=== PATIENT | female | born 1995 | race Caucasian/White ===

== ENCOUNTER 2018-04-25 12:40 | Inpatient (IN) | payer OTHER ==
[2018-06-21] MEDS ORDERED: DINOPROSTONE 10 MG VAGINAL INSERT.SR ONE (21:53)
[2018-06-21] MEDS ORDERED: MISOPROSTOL 0.2 MG TABLET ONE (21:53)
[2018-06-21] MEDS ORDERED: LIDOCAINE 1% INJ-PF (10 MG/ML) 30 ML SDV ONE (21:53)
[2018-06-21] MEDS ORDERED: OXYTOCIN/NORMAL SALINE 20 UNIT/1,000 ML RTUINJ ONE (21:53)
[2018-06-21 22:22] LABS: ABSOLUTE BASOPHILS # (AUTO) 0.1 10^3/uL (0.0-0.2); ABSOLUTE EOSINOPHILS # (AUTO) 0.1 10^3/uL (0.0-0.6); ABSOLUTE LYMPHOCYTES (AUTO) 2.6 10^3/uL (0.5-4.7); ABSOLUTE MONOCYTES (AUTO) 1.1 10^3/uL (0.1-1.4); ABSOLUTE NEUT (AUTO) 10.2 10^3/uL (1.7-8.2); BASOPHILS % (AUTO) 0.4 % (0-2); EOSINOPHILS % (AUTO) 0.7 % (0-6); HEMATOCRIT 30.7 % (36.0-47.0); HEMOGLOBIN 10.4 g/dL (12.0-15.5); LYMPHOCYTES % (AUTO) 18.8 % (13-45); MEAN CORPUSCULAR HEMOGLOBIN 27.2 pg (27.0-33.4); MEAN CORPUSCULAR VOLUME 80 fl (80-97); MONOCYTES % (AUTO) 7.5 % (3-13); PLATELET COUNT 261 10^3/uL (150-450); RED BLOOD COUNT 3.84 10^6/uL (3.72-5.28); RED CELL DISTRIBUTION WIDTH 15.4 % (11.5-14.0); SEGMENTED NEUTROPHILS % (AUTO) 72.6 % (42-78); TOTAL CELLS COUNTED % (AUTO) 100 %; WHITE BLOOD COUNT 14.1 10^3/uL (4.0-10.5)
[2018-06-21 22:25] LABS: APPEARANCE,URINE SLIGHTLY-CLOUDY; BILIRUBIN,URINE NEGATIVE (NEGATIVE); COLOR,URINE YELLOW; GLUCOSE, URINE NEGATIVE (NEGATIVE); KETONES,URINE NEGATIVE (NEGATIVE); LEUKOCYTE ESTERASE,URINE NEGATIVE (NEGATIVE); NITRITE,URINE NEGATIVE (NEGATIVE); PROTEIN,URINE NEGATIVE (NEGATIVE); URINE SPECIFIC GRAVITY 1.024
[2018-06-21] MEDS: RINGERS SOLUTION,LACTATED 1,000 ML IV PRN (22:39)
[2018-06-21] MEDS ORDERED: OXYTOCIN/NORMAL SALINE 20 UNIT/1,000 ML RTUINJ IV PRN (22:41)
[2018-06-21] MEDS ORDERED: DINOPROSTONE 10 MG VAGINAL INSERT.SR PV PRN (22:41)
[2018-06-21] MEDS ORDERED: RINGERS SOLUTION,LACTATED 300 ML IV ONE (22:41)
[2018-06-21 22:43] LABS: URINE AMPHETAMINES SCREEN NEGATIVE; URINE BARBITURATES SCREEN NEGATIVE; URINE BENZODIAZEPINES SCREEN NEGATIVE; URINE COCAINE SCREEN NEGATIVE; URINE MARIJUANA (THC) SCREEN NEGATIVE; URINE METHADONE SCREEN NEGATIVE; URINE PHENCYCLIDINE SCREEN NEGATIVE
--- NOTE | 2018-06-21 22:55 | Admission Physical ---
Datetime Report Generated by CPN: 06/21/2018 22:54 CURRENT ADMISSION Chief Complaint: Scheduled Induction of Labor Indication for Induction: Post Dates Admit Impression : Term, Intrauterine Admit Plan: Initiate Labor Induction Protocol ALLERGIES Medication Allergies: No Medication Allergies: No Known Allergies (06/21/2018) Latex: No Latex Allergies OBSTETRICAL HISTORY EDC: 06/15/2018 00:00 : 1 Para: 0 Term: 0 : 0 SAB: 0 IAB: 0 Ectopic: 0 Livin Cesareans: 0 VBACs: 0 Multiple Births: 0 Gestational Diabetes: No Rh Sensitization: No Incompetent Cervix: No ALIVIA: No Infertility: No ART Treatment: No Uterine Anomaly: No IUGR: No Hx Previous C/S: No Macrosomia: No Hx Loss/Stillborn: No PIH: No Hx : No Placenta Previa/Abruption: No Depression/PP Depression: No PTL/PROM: No Post Hemorrhage: No Obstetrical History Comments: G1: current SEE RECORDS Alcohol: No Marijuana : No Cocaine: No Other Illicit Drugs: No Cigarettes: Never Smoker. [id number] MEDICAL HISTORY Diabetes: No Blood Transfusion: No Pulmonary Disease (Asthma, TB): No Breast Disease: No Hypertension: No Ham Passer Surgery: No Heart Disease: No Hosp/Surgery: No Autoimmune Disorder: No Anesthetic Complications: No Kidney Disease: No Abnormal Pap Smear: No Neuro/Epilepsy: No Psychiatric Disorders: No Other Medical Diseases: No Hepatitis/Liver Disease: No Significant Family History: No Varicosities/Phlebitis: No Trauma/Violence : No Thyroid Dysfunction: No Medical History Comments: tonsillectomy INFECTIOUS HISTORY Gonorrhea: No Genital Herpes: No Chlamydia: No Tuberculosis: No Syphilis: No Hepatitis: No HIV/AIDS Exposure: No Rash or Viral Illness: No HPV: No PHYSICAL EXAM General: Normal HEENT: Normal Neurologic: Normal Thyroid: Normal Heart: Normal Lungs: Normal Breast: Normal Back: Normal Abdomen: Normal Genitourinary Exam: Normal Extremities: Normal DTRs: Normal Pelvic Type: Adequate Vital Signs: Reviewed; Within Normal Limits VAGINAL EXAM Dilatation: closed Effacement: thick Station: -3 Contraction Comments: irregular MEMBRANES Membranes: Intact FETUS A EGA: 40.6 Monitoring: External US FHR- Baseline: 150-160s Variability: Moderate 6-25bpm Accelerations: 15X15 Decelerations: None FHR Category: Category I Admit Comment: IOL for postdates; GBS neg PLANS FOR LABOR AND DELIVERY Labor and Delivery: None Pain Management: Epidural Feeding Preference: Breast Benefit of Breast Feed Discussed: Yes Circumcision: N/A INFORMED CONSENT Signature: with User ID: [email or web address]
[2018-06-21] MEDS ORDERED: ZOLPIDEM TARTRATE 5 MG TABLET ONE (23:27)
[2018-06-22] MEDS ORDERED: NALBUPHINE HCL INJ 10 MG/1 ML AMPULE INJ ONE ×2 (04:33→17:00)
[2018-06-22] MEDS ORDERED: PROMETHAZINE HCL INJ 25 MG/1 ML VIAL IV ONE ×2 (04:33→17:00)
[2018-06-22] MEDS ORDERED: PROMETHAZINE HCL INJ 25 MG/1 ML VIAL ONE ×2 (04:35→16:40)
[2018-06-22] MEDS ORDERED: NALBUPHINE HCL INJ 10 MG/1 ML AMPULE ONE ×2 (04:35→16:40)
[2018-06-22] MEDS: RINGERS SOLUTION,LACTATED 1,000 ML IV PRN (04:44)
[2018-06-22] MEDS ORDERED: DINOPROSTONE 10 MG VAGINAL INSERT.SR PV ONE (13:29)
[2018-06-22] MEDS ORDERED: DINOPROSTONE 10 MG VAGINAL INSERT.SR ONE (14:19)
[2018-06-23] MEDS ORDERED: OXYTOCIN/NORMAL SALINE 20 UNIT/1,000 ML RTUINJ ONE (03:57)
[2018-06-23] MEDS ORDERED: NALBUPHINE HCL INJ 10 MG/1 ML AMPULE ONE (05:17)
[2018-06-23] MEDS ORDERED: PROMETHAZINE HCL INJ 25 MG/1 ML VIAL ONE (05:17)
[2018-06-23] MEDS ORDERED: PROMETHAZINE HCL INJ 25 MG/1 ML VIAL IV ONE (05:24)
[2018-06-23] MEDS ORDERED: NALBUPHINE HCL INJ 10 MG/1 ML AMPULE INJ ONE (05:24)
[2018-06-23] MEDS ORDERED: FENTANYL CITRATE INJ/PF 100 MCG/2 ML AMPUL ONE (08:13)
[2018-06-23] MEDS ORDERED: FENTANYL/BUPIVACAINE/NS/PF 300 MCG/150 ML RTUINJ EPI ONE (08:13)
[2018-06-23] MEDS ORDERED: EPHEDRINE SULFATE INJ 50 MG/1 ML AMPULE ONE (08:13)
[2018-06-23] MEDS ORDERED: LIDOCAINE 1.5%/EPINEPHRINE INJ-PF 30 ML SDV ONE (08:13)
[2018-06-23] MEDS ORDERED: BUPIVACAINE HCL 0.25 % INJ/PF (2.5 MG/1 ML) 30 ML VIAL ONE (08:14)
[2018-06-23] MEDS: RINGERS SOLUTION,LACTATED 1,000 ML IV PRN ×3 (08:29→12:09)
[2018-06-23] MEDS ORDERED: ZOLPIDEM TARTRATE 5 MG TABLET PO PRN (17:50)
[2018-06-23] MEDS ORDERED: MAGNESIUM HYDROXIDE SUSP 30 ML UDCUP PO PRN (17:50)
[2018-06-23] MEDS ORDERED: OXYTOCIN/NORMAL SALINE 20 UNIT/1,000 ML RTUINJ IV PRN (17:50)
[2018-06-23] MEDS ORDERED: PROMETHAZINE HCL 25 MG TABLET PO PRN (17:50)
[2018-06-23] MEDS ORDERED: GLYCERIN/WITCH HAZEL LEAF 1 EACH MED..PAD TP PRN (17:50)
[2018-06-23] MEDS ORDERED: PROMETHAZINE HCL 25 MG SUPP.RECT PR PRN (17:50)
[2018-06-23] MEDS ORDERED: ACETAMINOPHEN 650 MG SUPP.RECT PR PRN (17:50)
[2018-06-23] MEDS ORDERED: DIPH/PERTUSS(ACELL)/TETANUS VAC/PF 0.5 ML SYR (>=10YO) IM PRN (17:50)
[2018-06-23] MEDS ORDERED: NA PHOS,M-B/NA PHOS,DI-BA (ADULT) 133 ML ENEMA PR PRN (17:50)
[2018-06-23] MEDS ORDERED: ACETAMINOPHEN 325 MG TABLET PO PRN (17:50)
[2018-06-23] MEDS ORDERED: ACETAMINOPHEN WITH CODEINE #3 TABLET PO PRN (17:50)
[2018-06-23] MEDS ORDERED: PROMETHAZINE HCL INJ 25 MG/1 ML VIAL IV PRN (17:50)
[2018-06-23] MEDS ORDERED: DIPHENHYDRAMINE HCL 25 MG CAPSULE PO PRN (17:50)
[2018-06-23] MEDS ORDERED: BENZOCAINE/MENTHOL AEROSOL SPRAY 56 ML TOP PRN (17:50)
[2018-06-23] MEDS ORDERED: MEASLES,MUMPS&RUBELLA VACC/PF 0.5 ML VIAL SUBCUT PRN (17:50)
[2018-06-23] MEDS ORDERED: DIBUCAINE 1% OINTMENT 28 GM TP PRN (17:50)
[2018-06-23] MEDS ORDERED: PSEUDOEPHEDRINE HCL 30 MG TABLET PO PRN (17:50)
[2018-06-23] MEDS ORDERED: GENTAMICIN SULFATE INJ 80 MG/2 ML VIAL IV ONE (18:14)
[2018-06-23] MEDS ORDERED: AMPICILLIN SOD INJ 2 GM VIAL IM SCH (18:15)
[2018-06-23] MEDS ORDERED: AMPICILLIN SOD INJ 2 GM VIAL ONE ×3 (18:16→23:37)
[2018-06-23] MEDS ORDERED: ACETAMINOPHEN WITH CODEINE #3 TABLET ONE (18:41)
[2018-06-23] MEDS ORDERED: GENTAMICIN SULFATE INJ 80 MG/2 ML VIAL IV PRN (18:58)
[2018-06-23] MEDS ORDERED: GENTAMICIN SULFATE 150 MG in DEXTROSE 5%-WATER 100 ML IV ONE (19:00)
[2018-06-23] MEDS ORDERED: AMPICILLIN SOD INJ 2 GM VIAL IV PRN (19:00)
[2018-06-23] MEDS: IBUPROFEN 800 MG TABLET PO SCH (22:04)
[2018-06-23] MEDS: FAMOTIDINE 20 MG TABLET PO SCH (22:05)
[2018-06-23] MEDS ORDERED: GENTAMICIN SULFATE INJ 80 MG/2 ML VIAL ONE ×2 (23:39)
[2018-06-24] MEDS: AMPICILLIN SODIUM 2 GM in NORMAL SALINE 100 ML IV SCH ×4 (01:20→17:51)
[2018-06-24] MEDS ORDERED: GENTAMICIN SULFATE 150 MG in DEXTROSE 5%-WATER 100 ML IV ONE ×2 (01:45→03:00)
[2018-06-24] MEDS ORDERED: GENTAMICIN SULFATE INJ 80 MG/2 ML VIAL IV SCH (02:00)
[2018-06-24] MEDS ORDERED: GENTAMICIN SULFATE INJ 80 MG/2 ML VIAL IV ONE (03:00)
[2018-06-24] MEDS: IBUPROFEN 800 MG TABLET PO SCH ×3 (05:42→21:11)
[2018-06-24 07:51] LABS: HEMATOCRIT 29.1 % (36.0-47.0); HEMOGLOBIN 9.6 g/dL (12.0-15.5); MEAN CORPUSCULAR HEMOGLOBIN 26.5 pg (27.0-33.4); MEAN CORPUSCULAR HGB CONC 32.9 g/dL (32.0-36.0); MEAN CORPUSCULAR VOLUME 81 fl (80-97); PLATELET COUNT 234 10^3/uL (150-450); RED BLOOD COUNT 3.61 10^6/uL (3.72-5.28); RED CELL DISTRIBUTION WIDTH 15.8 % (11.5-14.0)
[2018-06-24] MEDS: DOCUSATE SODIUM 100 MG CAPSULE PO SCH ×3 (08:01→17:51)
[2018-06-24] MEDS: FERROUS SULFATE 325 MG TABLET PO SCH ×3 (08:01→17:51)
--- NOTE | 2018-06-24 09:44 | PDOC PROGRESS REPORT ---
Subjective-OB Progress Note for:: 06/24/18 Subjective: reports bleeding slowing, pain controlled with current meds, denies needs Physical Exam (OB) Vital Signs: Temp Pulse Resp BP Pulse Ox 98.2 F 86 16 120/65 98 06/24/18 03:30 06/23/18 20:17 06/23/18 20:17 06/23/18 20:17 06/23/18 20:17 Intake & Output 06/23/18 06/24/18 06/25/18 06:59 06:59 06:59 Intake Total 1762.75 1000 Balance 1762.75 1000 - Abdomen Description: Soft Hernia Present: No Fundal Description: Firm, Midline Fundal Height: u/u - u/2 - Abdominal Distension: No distension Tenderness: Nontender - Extremities Lower extremities: Amari's sign - neg Calf: Normal, Nontender Objective-Diagnostic Laboratory: 06/24/18 07:11 06/24/18 07:11 WBC 21.0 H RBC 3.61 L Hgb 9.6 L Hct 29.1 L MCV 81 MCH 26.5 L MCHC 32.9 RDW 15.8 H Plt Count 234 Assessment and Plan(PN) - Assessment and Plan (1) Post-dates Qualifiers: Post-term type: 40-42 weeks gestation Qualified Code(s): O48.0 - Post-term Is this a current diagnosis for this admission?: Yes (2) Vaginal delivery Is this a current diagnosis for this admission?: Yes - Time Spent with Patient Time with patient: Less than 15 minutes Medications reviewed and adjusted accordingly: Yes - Disposition Anticipated Discharge: Home Within: within 24 hours
[2018-06-24] MEDS: SENNOSIDES/DOCUSATE 8.6-50 MG 1 EACH TABLET PO SCH (10:46)
[2018-06-24] MEDS: GENTAMICIN SULFATE 110 MG in DEXTROSE 5%-WATER 100 ML IV SCH ×2 (10:46→19:33)
[2018-06-24] MEDS: PRENATAL VITAMIN W DHA CAPSULE PO SCH (10:46)
[2018-06-24] MEDS: FAMOTIDINE 20 MG TABLET PO SCH ×2 (10:46→21:11)
[2018-06-24] MEDS ORDERED: GENTAMICIN SULFATE 110 MG in DEXTROSE 5%-WATER 100 ML IV SCH (11:00)
[2018-06-24] MEDS: ACETAMINOPHEN WITH CODEINE #3 TABLET PO PRN (12:55)
[2018-06-25] MEDS: AMPICILLIN SODIUM 2 GM in NORMAL SALINE 100 ML IV SCH ×2 (00:10→06:00)
[2018-06-25] MEDS: GENTAMICIN SULFATE 110 MG in DEXTROSE 5%-WATER 100 ML IV SCH ×2 (02:57→10:39)
[2018-06-25] MEDS: IBUPROFEN 800 MG TABLET PO SCH (05:59)
[2018-06-25] MEDS: ACETAMINOPHEN WITH CODEINE #3 TABLET PO PRN (06:00)
--- NOTE | 2018-06-25 10:27 | PDOC DISCHARGE SUMMARY ---
Final Diagnosis Discharge Date: 06/25/18 - Final Diagnosis (1) Obstetrical laceration, second degree Is this a current diagnosis for this admission?: Yes (2) Post-dates Is this a current diagnosis for this admission?: Yes (3) Vaginal delivery Is this a current diagnosis for this admission?: Yes Discharge Data - Discharge Medication Prescriptions: Ibuprofen [Motrin 800 mg Tablet] 800 mg PO Q8 #60 tablet Home Medications: Vits96/Iron Fum/Folic [ Tablet] 1 tab PO DAILY 05/22/18 Ibuprofen [Motrin 800 mg Tablet] 800 mg PO Q8 #60 tablet 06/25/18 Reason(s) for Admission: Induction of Labor Intrapartum Procedure(s): Spontaneous Vaginal Delivery Complication(s): Laceration-Vaginal Laceration-Degree: 2nd - Diagnosis Test Laboratory: Temp Pulse Resp BP Pulse Ox 98.6 F 80 16 113/60 100 06/25/18 08:52 06/25/18 08:52 06/25/18 08:52 06/25/18 08:52 06/25/18 08:52 06/21/18 06/21/18 06/24/18 21:55 22:06 07:11 RBC 3.84 3.61 L Hgb 10.4 L 9.6 L Hct 30.7 L 29.1 L Urine Opiates Screen NEGATIVE - Discharge information/Instructions Discharge Activity: Pelvic Rest, No tub bath Discharge Diet: As Tolerated Disposition: HOME, SELF-CARE Follow up with: [facility] in: 4
[2018-06-25] MEDS: PRENATAL VITAMIN W DHA CAPSULE PO SCH (10:36)
[2018-06-25] MEDS: FAMOTIDINE 20 MG TABLET PO SCH (10:36)
[2018-06-25] MEDS: SENNOSIDES/DOCUSATE 8.6-50 MG 1 EACH TABLET PO SCH (10:36)
[2018-06-25] MEDS: DOCUSATE SODIUM 100 MG CAPSULE PO SCH (10:36)
[2018-06-25] MEDS: FERROUS SULFATE 325 MG TABLET PO SCH (10:36)
[2018-06-25 12:03] VITALS: BP 106/66
--- NOTE | 2018-07-02 11:34 | Delivery Summary ---
Del Sum A-C Datetime Report Generated by CPN: 07/02/2018 11:34 DELIVERY PERSONNEL DELIVERY PERSONNEL: [id number] Delivery Doctor:: Lexi Santos MD Delivery Doctor:: Lexi Santos MD Labor and Delivery Nurse:: Willard Almazan RNretirement plan specialist Nurse:: Nani Butcher RN Nursery Nurse:: Greta Regalado RN Journeyman Mechanic/BABY STROLLER RENTAL CLERK: ST Enzo Journeyman Mechanic/BABY STROLLER RENTAL CLERK: Kassandra Davey, ST MATERNAL INFORMATION Delivery Anesthesia: Epidural Delivery Anesthesia: Epidural Medications After Delivery: Pitocin Drip 20 Units/1000ml NSS Maternal Complications: Prolonged Second Stage > 2 Hrs Provider Comments: VFI delivered in DAHLIA presentation with loose nuchal cord reduced. Thick meconium noted with Nursery personel present. Body cord noted. Shoulders and body delivered without difficulty. Cord doubly clamped and cut and infant to maternal abdomen. Placenta delivered intact spontaneously. FF at U. 101.0 temp - will give Amp/Gent started - will continue for at least 24 hours. Mother and baby stable upon provider leaving the room. LABOR SUMMARY EDC: 06/15/2018 00:00 No. Babies in Womb: 1 Attempted: No Labor Anesthesia: Epidural Labor Anesthesia: Epidural LABOR INFORMATION Reason for Induction: Post Dates Reason for Induction: Post Dates Onset of Labor: 06/23/2018 09:31 Complete Dilatation: 06/23/2018 13:56 Cervical Ripening Agents: Cervidil Cervical Ripening Agents: Cervidil (Annotations: removed by pt.) Cervical Ripening Agents: Cervidil Other Ripening Agents: cervidil x 2 Oxytocin: Induction Oxytocin: Induction Group B Beta Strep: Negative Steroids Given: None Reason Steroids Not Administered: Not Applicable MEMBRANES Membranes Rupture Method: Spontaneous Rupture of Membranes: 06/23/2018 13:56 Length of Rupture (hr): 3.63 Amniotic Fluid Color: Moderate Meconium Amniotic Fluid Amount: Moderate Amniotic Fluid Odor: Normal STAGES OF LABOR Stage 1 hr: 4 Stage 1 min: 25 Stage 2 hr: 3 Stage 2 min: 38 Stage 3 hr: 0 Stage 3 min: 2 Total Time in Labor hr: 8 Total Time in Labor min: 5 VAGINAL DELIVERY Episiotomy: None Episiotomy: None Laceration #1: Periurethral Laceration #1: Perineal Laceration Extension #1: Second Degree Laceration Repair: Yes Laceration Repair: Yes Laceration Repair Note: good hemostasis with repair Sponge Count Correct: Yes Sponge Count Correct: Yes Sharps Count Correct: Yes Sharps Count Correct: Yes CSECTION DELIVERY Primary Indication: N/A Secondary Indication: N/A CSection Incidence: N/A Labor: N/A Elective: N/A CSection Incision: N/A BABY A INFORMATION Infant Delivery Date/Time: 06/23/2018 17:34 Method of Delivery: Vaginal Born in Route : No : N/A Forceps: N/A Vacuum Extraction: N/A Shoulder Dystocia : No PRESENTATION/POSITION BABY A Presentation: Cephalic Presentation: Cephalic Cephalic Presentation: Vertex Vertex Position: Left Occipital Anterior Breech Presentation: N/A PLACENTA INFORMATION BABY A Placenta Delivery Time : 06/23/2018 17:36 Placenta Method of Delivery: Spontaneous Placenta Method of Delivery: Spontaneous Placenta Status: Delivered SCORES BABY A Heart Rate 1 min: >100 bpm Resp Effort 1 min: Good Cry Reflex Irritability 1 min: Cough or Sneeze or Pulls Away Muscle Tone 1 min: Some Flexion of Extremities Color 1 min: Body [place], Extremities Blue Resuscitation Effort 1 min: Tactile Stimulation SCORE 1 MIN: 8 Heart Rate 5 min: >100 bpm Resp Effort 5 min: Good Cry Reflex Irritability 5 min: Cough or Sneeze or Pulls Away Muscle Tone 5 min: Active Motion Color 5 min: Completely [place] Resuscitation Effort 5 min: Tactile Stimulation SCORE 5 MIN: 10 INFANT INFORMATION BABY A Gestational Age at Delivery: 41.1 Gestational Status: Late Term- 41- 41.6 Weeks Infant Outcome : Liveborn Infant Condition : Stable Infant Sex: Female IDENTIFICATION BABY A Verification Date/Time: 06/23/2018 17:48 ID Band Number: [id number] Mother's Name Verified: Yes RN Verifying Infant: H. David, RN and B. Baidy, RN WEIGHT/LENGTH BABY A Infant Birthweight (gm): 3541 Weight (lb): 7 Weight (oz): 13 Length (in): 20.75 Infant Length (cm): 52.71 CORD INFORMATION BABY A No. Cord Vessels: 3 Nuchal Cord : Around Neck x1, Loose Nuchal Cord- Other: body cord Cord Blood Taken: Yes-For Eval (Mom's Blood Type - or O+) Infant Suction: Mouth ASSESSMENT BABY A Skin to Skin: Yes BABY B INFORMATION : N/A SIGNATURES Signature: with User ID: [email or web address]
== END 2018-06-25 13:30 | disposition home or self-care (01) | DRG 807 ==
LOC: LR 06-21 21:47 → 2S 06-23 20:02
PROVIDERS: ADMIT Obstetrics & Gynecology; ATTEND Obstetrics & Gynecology
PROC: 10E0XZZ Delivery of Products of Conception, External Approach (ICD-10-PCS; principal; 2018-06-21)
PROC: 0KQM0ZZ Repair Perineum Muscle, Open Approach (ICD-10-PCS; 2018-06-21)
PROC: 3E0P7VZ Introduction of Hormone into Female Reproductive, Via Natural or Artificial Opening (ICD-10-PCS; 2018-06-21)
PROC: 4A1HXCZ Monitoring of Products of Conception, Cardiac Rate, External Approach (ICD-10-PCS; 2018-06-21)
DX: O48.0 Post-term pregnancy (principal); Z37.0 Single live birth; O70.1 Second degree perineal laceration during delivery; O63.1 Prolonged second stage (of labor); O69.82X0 Labor and delivery complicated by other cord entanglement, without compression, not applicable or unspecified; O69.81X0 Labor and delivery complicated by cord around neck, without compression, not applicable or unspecified; Z3A.41 41 weeks gestation of pregnancy
CPT/HCPCS: 36415; 80307; 81005; 85025; 85027; 86592; 86850; 86900; 86901; J0290; J1580; J2300; J2550; J2590; J3010; J3490

== ENCOUNTER 2018-05-22 10:31 | Outpatient (CLI) | payer OTHER ==
[2018-05-22 11:03] LABS: APPEARANCE,URINE CLEAR; BILIRUBIN,URINE NEGATIVE (NEGATIVE); COLOR,URINE COLORLESS; GLUCOSE, URINE NEGATIVE (NEGATIVE); KETONES,URINE NEGATIVE (NEGATIVE); LEUKOCYTE ESTERASE,URINE NEGATIVE (NEGATIVE); NITRITE,URINE NEGATIVE (NEGATIVE); PROTEIN,URINE NEGATIVE (NEGATIVE); UROBILINOGEN,URINE NEGATIVE mg/dL (<2.0)
[2018-05-22 11:42] LABS: URINE AMPHETAMINES SCREEN NEGATIVE; URINE BARBITURATES SCREEN NEGATIVE; URINE BENZODIAZEPINES SCREEN NEGATIVE; URINE COCAINE SCREEN NEGATIVE; URINE MARIJUANA (THC) SCREEN NEGATIVE; URINE METHADONE SCREEN NEGATIVE; URINE PHENCYCLIDINE SCREEN NEGATIVE
--- NOTE | 2018-05-22 11:48 | Non Stress Test Report ---
Non Stress Test Datetime Report Generated by CPN: 05/22/2018 11:47 DEMOGRAPHIC Test Number: 1 EGA NST: 36.4 INDICATION Indication for Study: Ordered by Provider Indication for Study (NST) Other: LC MONITORING Monitor Explained: Monitor Explained; Test Explained; Patient Verbalized Understanding Time on Monitor: 05/22/2018 10:45 Time off Monitor: 05/22/2018 11:38 NST Duration: 53 NST INTERVENTIONS NST Interventions: PO Hydration Physician Notified NST: K Carrera CNM BABY A: [id number] BABY A Movement : Present Contraction Frequency : irritability Accelerations : 15X15 Decelerations : None Variability : Moderate 6-25bpm NST Review: Meets Criteria for Reactive NST NST Review and Verified By : Rosa Camp RNC NST Results: Reactive NST REPORT Report Trigger: Send Report
== END 2018-05-22 11:45 | disposition home or self-care (01) ==
LOC: LC 10:31
PROVIDERS: ATTEND Obstetrics & Gynecology
PROC: 4A1HXCZ Monitoring of Products of Conception, Cardiac Rate, External Approach (ICD-10-PCS; principal; 2018-05-22)
DX: O47.03 False labor before 37 completed weeks of gestation, third trimester (principal); Z3A.36 36 weeks gestation of pregnancy
CPT/HCPCS: 59025; 80307; 81005